=== PATIENT | male | born 1990 | race Caucasian/White ===

== ENCOUNTER 2020-03-07 09:08 | Outpatient (CLI) | payer MEDICAID, SELFPAY ==
--- NOTE | 2020-03-07 09:21 | XR_ITS ---
WS: [id number] RIGHT ANKLE: 3 VIEW(S) TECHNIQUE: AP, oblique(s) and lateral. HISTORY: CHRONIC ANKLE RIGHT PAIN COMPARISON: None available. Normal anatomic alignment with no fracture or dislocation. No joint effusion or widening of the ankle mortise. a there are small osteophytes noted from the anterior tibial plafond and also in the distal tibiofibu lar joint space. No soft tissue abnormality. XR/XR ankle RT min 3V* [id number] IMPRESSION: Small osteophytes as above. No fracture.
--- NOTE | 2020-03-07 09:21 | XR_ITS ---
WS: [id number] LEFT ANKLE: 3 VIEW(S) TECHNIQUE: AP, oblique(s) and lateral. HISTORY: CHRONIC ANKLE PAIN BILATERAL COMPARISON: None available. Normal anatomic alignment with no fracture or dislocation. No joint effusion or widening of the ankle mortise. No significant degenerative changes at the joint spaces. No soft tissue abnormality. XR/XR ankle LT min 3V* [id number] IMPRESSION: Normal LEFT ankle.
== END 2020-03-07 09:09 | disposition home or self-care (01) ==
LOC: RADWPI 09:14
PROVIDERS: Family Provider Nurse Practitioner; PCP Nurse Practitioner; Visit Provider Nurse Practitioner
DX: M25.571 Pain in right ankle and joints of right foot (principal); M25.572 Pain in left ankle and joints of left foot; M25.771 Osteophyte, right ankle
CPT/HCPCS: 73610